=== PATIENT | male | born 1980 | race Caucasian/White ===

== ENCOUNTER 2018-08-02 18:21 | Emergency (ER) | payer BC, OTHER ==
[2018-08-02 18:26] VITALS: TEMP 98.1
[2018-08-02] MEDS ORDERED: KETOROLAC 60 MG/2 ML VIAL IM STA (18:52)
--- NOTE | 2018-08-02 19:08 | XR ---
EXAMINATION TYPE: XR ribs RT w pa chest xray DATE OF EXAM: 08/02/2018 CLINICAL HISTORY: Chest and right-sided rib pain for 4 days. TECHNIQUE: Single frontal view of the chest is obtained. A frontal and oblique images of the right-si ded ribs are acquired. COMPARISON: Chest x-ray August 19, 2015. FINDINGS: There is chronic parenchymal change without suspicious focal air space opacity, pleural ef fusion, or pneumothorax seen. The cardiac silhouette size is within normal limits. The osseous str uctures are intact. Dedicated images of right-sided ribs show no acute displaced fracture. Overlying soft tissue is unrem arkable. IMPRESSION: 1. No acute cardiopulmonary process. 2. No acute displaced right-sided rib fractures are seen.
--- NOTE | 2018-08-02 19:45 | ED ---
General Adult HPI - General Chief complaint: Recheck/Abnormal Lab/Rx Stated complaint: rt sided abd pain Time Seen by Provider: 08/02/18 18:34 Source: patient, RN notes reviewed, old records reviewed Mode of arrival: ambulatory Limitations: no limitations - History of Present Illness Initial comments: 37-year-old male patient passed no history of spherocytosis status post splenectomy presents to ED with right rib pain. Patient force approximate 4 days ago he was bending over to place something in the trash when he felt pain in his right anterior axillary line at approximately eighth rib. Patient reports that he has had this pain for approximate 4 days. Patient states the pain is increased with palpation as well as reproducible by range of motion. Patient has a shortness of breath chest pain nausea vomiting or diarrhea. Patient has any fevers at home. Patient denies any other complaints today. Systemic: Pt denies fatigue, myalgia, fever/chills, rash. Pt denies weakness, night sweats, weight loss. Neuro: Pt denies headache, visual disturbances, syncope or pre-syncope. HEENT: Pt denies ocular discharge or irritation, otalgia, rhinorrhea, pharyngitis or notable lymphadenopathy. Cardiopulmonary: Pt denies chest pain, SOB, heart palpitations, dyspnea on exertion. Abdominal/GI: Pt denies abdominal pain, n/v/d. : Pt denies dysuria, burning w/ urination, frequency/urgency. Denies new onset urinary or bowel incontinence. MSK: Pt denies myalgia, loss of strength or function in extremities. Neuro: Pt denies new onset weakness, paresthesias. - Related Data Home Medications Medication Instructions Recorded Confirmed metFORMIN HCL [metFORMIN HCL ER] 1,000 mg PO AC-SUPPER 12/17/15 12/17/15 Previous Rx's Medication Instructions Recorded LORazepam [Ativan] 1 mg PO TID PRN #8 tab 12/18/15 Meclizine [Antivert] 25 mg PO TID PRN #12 tab 12/18/15 Ibuprofen [Motrin] 600 mg PO Q6HR PRN #40 day 08/02/18 Allergies Allergy/AdvReac Type Severity Reaction Status Date / Time No Known Allergies Allergy Verified 08/02/18 18:26 Review of Systems ROS Statement: Those systems with pertinent positive or pertinent negative responses have been documented in the HPI. ROS Other: All systems not noted in ROS Statement are negative. Past Medical History Past Medical History: Hyperlipidemia Additional Past Medical History / Comment(s): spherocytosis, vertigo History of Any Multi-Drug Resistant Organisms: None Reported Additional Past Surgical History / Comment(s): spleenectomy Past Psychological History: No Psychological Hx Reported Smoking Status: Never smoker Past Alcohol Use History: None Reported Past Drug Use History: None Reported General Exam - General Exam Comments Initial Comments: Constitutional: NAD, AOX3, Pt has pleasant affect. HEENT: NC/AT, trachea midline, neck supple, no lymphadenopathy. Posterior pharynx non erythematous, without exudates. External ears appear normal, without discharge. Mucous membranes moist. Eyes PERRLA, EOM intact. There is no scleral icterus. No pallor noted. Cardiopulmonary: RRR, no murmurs, rubs or gallops, no JVD noted. Lungs CTAB in anterior and posterior orozco. No peripheral edema. Abdominal exam: Abdomen soft and non-distended. Abdomen non-tender to palpation in all 4 quadrants. Bowel sounds active in LLQ. No hepatosplenomegaly. No ecchymosis Neuro: CN II-XII grossly intact. No nuchal rigidity. MSK: Mild tenderness to palpation in anterior axillary line of right eighth rib. No ecchymoses. Tenderness reproducible by range of motion. No posterior calf tenderness bilaterally, homans sign negative bilaterally. Posterior tibialis and radial pulse +2 bilaterally. Sensation intact in upper and lower extremities. Full active ROM in upper and lower extremities, 5/5 stregnth. Limitations: no limitations Course Vital Signs 08/02/18 18:24 Temperature 98.1 F Pulse Rate 90 Respiratory 18 Rate Blood Pressure 128/67 O2 Sat by Pulse 98 Oximetry Medical Decision Making - Medical Decision Making 37-year-old male patient passed no history of spherocytosis status post splenectomy presents to ED with right rib pain. Patient force approximate 4 days ago he was bending over to place something in the trash when he felt pain in his right anterior axillary line at approximately eighth rib. Patient reports that he has had this pain for approximate 4 days. Patient states the pain is increased with palpation as well as reproducible by range of motion. Patient has a shortness of breath chest pain nausea vomiting or diarrhea. Patient has any fevers at home. Patient denies any other complaints today. Patient was in stable, afebrile. Physical exam displayed: Mild tenderness to palpation in anterior axillary line of right eighth rib. No ecchymoses. Tenderness reproducible by range of motion. Plain film of right ribs as well as PA chest x-ray displayed no acute cardiopulmonary process, no acute distress. Side fractures. Patient provided administration Toradol. Patient discharged with ibuprofen. Patient will follow up with primary care provider in 1-2 days. Patient given strict return precautions, pt to return to ER if conditon worsens in anyway. Case discussed with Dr. Morocho. Disposition Clinical Impression: Muscle strain Disposition: HOME SELF-CARE Condition: Stable Instructions (If sedation given, give patient instructions): Muscle Strain (ED) Additional Instructions: Patient to adhere to previously discussed treatment plan and will take medication(s) as directed. Patient to follow up with PCP in 1-2 days. Patient to return to ED if symptoms do not improve. Please take scheduled ibuprofen for 4 days. Please return immediately if any new symptoms develop, condition worsens or if fever. Please follow-up with primary care provider in 1-2 days. Prescriptions: Ibuprofen [Motrin] 600 mg PO Q6HR PRN #40 day PRN Reason: Pain Is patient prescribed a controlled substance at d/c from ED?: No Referrals: Low Rosa MD [Primary Care Provider] - 1-2 days
[2018-08-02 20:07] VITALS: BP 131/83; PULSE 91; RESP 17
== END 2018-08-02 20:05 | disposition home or self-care (01) ==
LOC: EC 18:21
DX: S29.011A Strain of muscle and tendon of front wall of thorax, initial encounter (principal); Z86.2 Personal history of diseases of the blood and blood-forming organs and certain disorders involving the immune mechanism; Z90.49 Acquired absence of other specified parts of digestive tract; Z79.84 Long term (current) use of oral hypoglycemic drugs; X50.9XXA Other and unspecified overexertion or strenuous movements or postures, initial encounter; Y92.009 Unspecified place in unspecified non-institutional (private) residence as the place of occurrence of the external cause
CPT/HCPCS: 71101; 99283; 96372; J1885

== ENCOUNTER 2018-12-30 17:32 | Observation (INO) | payer OTHER ==
[2018-12-30] MEDS ORDERED: ACETAMINOPHEN TAB 500 MG TAB PO STA (17:56)
--- NOTE | 2018-12-30 18:01 | ED ---
General Adult HPI - General Chief complaint: Nausea/Vomiting/Diarrhea Stated complaint: Sick Time Seen by Provider: 12/30/18 17:35 Source: patient, RN notes reviewed Mode of arrival: ambulatory Limitations: no limitations - History of Present Illness Initial comments: This is a 38-year-old male who has a past medical history significant for spherocytosis and has had a splenectomy. Patient comes in today complaining that for a week he's had nausea vomiting and diarrhea as well as a fever. Patient states he breaks out into a sweat and then gets the chills thereafter. Patient states he has he has had an occasional sore throat. Patient denies any cough but states he does cough up some junk in the mornings but that is something in his been long-standing. Patient denies any shortness of breath or chest pain. Patient has any palpitations. Patient denies any dysuria hematuria urinary frequency. Patient states he vomits at least a couple times a day and has diarrhea at least once a day. Patient denies any significant abdominal pain. Patient denies any sores lesions or areas of redness. Patient states he did have a large lymph node on the posterior aspect of the left side of his neck but it seems to be getting considerably smaller. Patient states initially was quite tender. Patient denies headache patient denies any numbness weakness. - Related Data Home Medications Medication Instructions Recorded Confirmed Aspirin/Sod Bicarb/Citric Acid 1 tab PO Q6H PRN 12/30/18 12/30/18 [[place] Original Tab Eff] diphenhydrAMINE HCL [Benadryl] 25 mg PO HS PRN 12/30/18 12/30/18 Allergies Allergy/AdvReac Type Severity Reaction Status Date / Time No Known Allergies Allergy Verified 12/30/18 18:15 Review of Systems ROS Statement: Those systems with pertinent positive or pertinent negative responses have been documented in the HPI. ROS Other: All systems not noted in ROS Statement are negative. Past Medical History Past Medical History: Hyperlipidemia Additional Past Medical History / Comment(s): spherocytosis, vertigo History of Any Multi-Drug Resistant Organisms: None Reported Additional Past Surgical History / Comment(s): spleenectomy Past Psychological History: No Psychological Hx Reported Smoking Status: Never smoker Past Alcohol Use History: None Reported Past Drug Use History: None Reported General Exam - General Exam Comments Initial Comments: GENERAL: Patient is well-developed and well-nourished. Patient is nontoxic and well- hydrated and is in mild distress. ENT: Neck is soft and supple. Patient had large posterior left cervical lymph node Oropharynx is clear. Moist mucous membranes. Neck has full range of motion without eliciting any pain. There is no thyroid enlargement and no masses were felt. EYES: The sclera were anicteric and conjunctiva were pink and moist. Extraocular movements were intact and pupils were equal round and reactive to light. Eyelids were unremarkable. PULMONARY: Unlabored respirations. Good breath sounds bilaterally. No audible rales rho nchi or wheezing was noted. CARDIOVASCULAR: There is a regular rate and rhythm without any murmurs gallops or rubs. ABDOMEN: Soft and nontender with normal bowel sounds. No palpable organomegaly was noted. There is no palpable pulsatile mass. Patient is morbidly obese SKIN: Skin is clear with no lesions or rashes and otherwise unremarkable. NEUROLOGIC: Patient is alert and oriented x3. Cranial nerves II through XII are grossly intact. Motor and sensory are also intact. Normal speech, volume and content. Symmetrical smile. MUSCULOSKELETAL: Normal extremities with adequate strength and full range of motion. LYMPHATICS: No significant lymphadenopathy is noted PSYCHIATRIC: Normal psychiatric evaluation. Limitations: no limitations Course Vital Signs 12/30/18 12/30/18 12/30/18 17:34 18:11 19:24 Temperature 97.6 F 99.7 F H 100.0 F H Pulse Rate 108 H 89 Respiratory 22 18 Rate Blood Pressure 183/113 128/98 O2 Sat by Pulse 98 98 Oximetry Medical Decision Making - Medical Decision Making EKG shows normal sinus rhythm at 94 bpm AK interval is 150 QRS is 90 QT interval 348 QTC is 435. Patient's EKG shows no ST segment elevation or depression. Patient has a positive heterophile. I spoke with Dr. Dejesus he agreed to admit the patient. - Lab Data Result diagrams: 12/30/18 18:25 12/30/18 18:25 Lab Results 12/30/18 12/30/18 12/30/18 Range/Units 18:17 18:25 18:25 WBC 7.1 (3.8-10.6) k/uL RBC 5.63 (4.30-5.90) m/uL Hgb 16.1 (13.0-17.5) gm/dL Hct 46.0 (39.0-53.0) % MCV 81.6 (80.0-100.0) fL MCH 28.5 (25.0-35.0) pg MCHC 35.0 (31.0-37.0) g/dL RDW 15.3 (11.5-15.5) % Plt Count 517 H (150-450) k/uL Neutrophils % (Manual) 71 % Band Neutrophils % 1 % Lymphocytes % (Manual) 20 % Monocytes % (Manual) 7 % Eosinophils % (Manual) 1 % Neutrophils # (Manual) 5.10 (1.3-7.7) k/uL Lymphocytes # (Manual) 1.42 (1.0-4.8) k/uL Monocytes # (Manual) 0.50 (0-1.0) k/uL Eosinophils # (Manual) 0.07 (0-0.7) k/uL Nucleated RBCs 0 (0-0) /100 WBC Manual Slide Review Performed PT (9.0-12.0) sec INR (<1.2) APTT (22.0-30.0) sec Sodium (137-145) mmol/L Potassium (3.5-5.1) mmol/L Chloride (98-107) mmol/L Carbon Dioxide (22-30) mmol/L Anion Gap mmol/L BUN (9-20) mg/dL Creatinine (0.66-1.25) mg/dL Est GFR (CKD-EPI)AfAm (>60 ml/min/1.73 sqM) Est GFR (CKD-EPI)NonAf (>60 ml/min/1.73 sqM) Glucose (74-99) mg/dL Plasma Lactic Acid Samy (0.7-2.0) mmol/L Calcium (8.4-10.2) mg/dL Total Bilirubin (0.2-1.3) mg/dL AST (17-59) U/L ALT (21-72) U/L Alkaline Phosphatase (38-126) U/L Troponin I (0.000-0.034) ng/mL Total Protein (6.3-8.2) g/dL Albumin (3.5-5.0) g/dL Urine Color Urine Appearance (Clear) Urine pH (5.0-8.0) Ur Specific [place] (1.001-1.035) Urine Protein (Negative) Urine Glucose (UA) (Negative) Urine Ketones (Negative) Urine Blood (Negative) Urine Nitrite (Negative) Urine Bilirubin (Negative) Urine Urobilinogen (<2.0) mg/dL Ur Leukocyte Esterase (Negative) Heterophile Antibody (Negative) Influenza Type A RNA Not Detected (Not Detectd) Influenza Type B (PCR) Not Detected (Not Detectd) Group A Strep Rapid Negative (Negative) 12/30/18 12/30/18 12/30/18 Range/Units 18:25 18:25 18:25 WBC (3.8-10.6) k/uL RBC (4.30-5.90) m/uL Hgb (13.0-17.5) gm/dL Hct (39.0-53.0) % MCV (80.0-100.0) fL MCH (25.0-35.0) pg MCHC (31.0-37.0) g/dL RDW (11.5-15.5) % Plt Count (150-450) k/uL Neutrophils % (Manual) % Band Neutrophils % % Lymphocytes % (Manual) % Monocytes % (Manual) % Eosinophils % (Manual) % Neutrophils # (Manual) (1.3-7.7) k/uL Lymphocytes # (Manual) (1.0-4.8) k/uL Monocytes # (Manual) (0-1.0) k/uL Eosinophils # (Manual) (0-0.7) k/uL Nucleated RBCs (0-0) /100 WBC Manual Slide Review PT 10.1 (9.0-12.0) sec INR 0.9 (<1.2) APTT 23.3 (22.0-30.0) sec Sodium 137 (137-145) mmol/L Potassium 4.6 (3.5-5.1) mmol/L Chloride 100 (98-107) mmol/L Carbon Dioxide 24 (22-30) mmol/L Anion Gap 13 mmol/L BUN 8 L (9-20) mg/dL Creatinine 0.75 (0.66-1.25) mg/dL Est GFR (CKD-EPI)AfAm >90 (>60 ml/min/1.73 sqM) Est GFR (CKD-EPI)NonAf >90 (>60 ml/min/1.73 sqM) Glucose 263 H (74-99) mg/dL Plasma Lactic Acid Samy 3.2 H* (0.7-2.0) mmol/L Calcium 9.2 (8.4-10.2) mg/dL Total Bilirubin 0.6 (0.2-1.3) mg/dL AST 70 H (17-59) U/L ALT 70 (21-72) U/L Alkaline Phosphatase 96 (38-126) U/L Troponin I (0.000-0.034) ng/mL Total Protein 7.6 (6.3-8.2) g/dL Albumin 3.9 (3.5-5.0) g/dL Urine Color Urine Appearance (Clear) Urine pH (5.0-8.0) Ur Specific [place] (1.001-1.035) Urine Protein (Negative) Urine Glucose (UA) (Negative) Urine Ketones (Negative) Urine Blood (Negative) Urine Nitrite (Negative) Urine Bilirubin (Negative) Urine Urobilinogen (<2.0) mg/dL Ur Leukocyte Esterase (Negative) Heterophile Antibody (Negative) Influenza Type A RNA (Not Detectd) Influenza Type B (PCR) (Not Detectd) Group A Strep Rapid (Negative) 12/30/18 12/30/18 12/30/18 Range/Units 18:25 18:25 18:25 WBC (3.8-10.6) k/uL RBC (4.30-5.90) m/uL Hgb (13.0-17.5) gm/dL Hct (39.0-53.0) % MCV (80.0-100.0) fL MCH (25.0-35.0) pg MCHC (31.0-37.0) g/dL RDW (11.5-15.5) % Plt Count (150-450) k/uL Neutrophils % (Manual) % Band Neutrophils % % Lymphocytes % (Manual) % Monocytes % (Manual) % Eosinophils % (Manual) % Neutrophils # (Manual) (1.3-7.7) k/uL Lymphocytes # (Manual) (1.0-4.8) k/uL Monocytes # (Manual) (0-1.0) k/uL Eosinophils # (Manual) (0-0.7) k/uL Nucleated RBCs (0-0) /100 WBC Manual Slide Review PT (9.0-12.0) sec INR (<1.2) APTT (22.0-30.0) sec Sodium (137-145) mmol/L Potassium (3.5-5.1) mmol/L Chloride (98-107) mmol/L Carbon Dioxide (22-30) mmol/L Anion Gap mmol/L BUN (9-20) mg/dL Creatinine (0.66-1.25) mg/dL Est GFR (CKD-EPI)AfAm (>60 ml/min/1.73 sqM) Est GFR (CKD-EPI)NonAf (>60 ml/min/1.73 sqM) Glucose (74-99) mg/dL Plasma Lactic Acid Samy (0.7-2.0) mmol/L Calcium (8.4-10.2) mg/dL Total Bilirubin (0.2-1.3) mg/dL AST (17-59) U/L ALT (21-72) U/L Alkaline Phosphatase (38-126) U/L Troponin I <0.012 (0.000-0.034) ng/mL Total Protein (6.3-8.2) g/dL Albumin (3.5-5.0) g/dL Urine Color Yellow Urine Appearance Clear (Clear) Urine pH 6.0 (5.0-8.0) Ur Specific [place] 1.015 (1.001-1.035) Urine Protein Negative (Negative) Urine Glucose (UA) 4+ H (Negative) Urine Ketones Negative (Negative) Urine Blood Negative (Negative) Urine Nitrite Negative (Negative) Urine Bilirubin Negative (Negative) Urine Urobilinogen <2.0 (<2.0) mg/dL Ur Leukocyte Esterase Negative (Negative) Heterophile Antibody Positive (Negative) Influenza Type A RNA (Not Detectd) Influenza Type B (PCR) (Not Detectd) Group A Strep Rapid (Negative) Disposition Clinical Impression: Gastroenteritis, Mononucleosis Disposition: ADMITTED IP TO THIS HOSP Referrals: Low Rosa MD [Primary Care Provider] - 1-2 days Time of Disposition: 20:39
[2018-12-30] MEDS: SODIUM CHLORIDE 0.9% 500 ML 500 ML IV SCH (18:51)
[2018-12-30 19:04] LABS: HGB 16.1 gm/dL (13.0-17.5); MCH 28.5 pg (25.0-35.0); MCV 81.6 fL (80.0-100.0); Mean Platelet Volume 7.8; Platelet Count 517 k/uL (150-450); RBC 5.63 m/uL (4.30-5.90); RDW 15.3 % (11.5-15.5); WBC 7.1 k/uL (3.8-10.6)
[2018-12-30 19:08] LABS: INR 0.9 (<1.2); Partial Thromboplastin Time 23.3 sec (22.0-30.0); Prothrombin Time 10.1 sec (9.0-12.0)
--- NOTE | 2018-12-30 19:08 | XR ---
EXAMINATION TYPE: XR chest 2V DATE OF EXAM: 12/30/2018 COMPARISON: 08/02/2018 HISTORY: Nausea and vomiting TECHNIQUE: Frontal and lateral views of the chest are obtained. FINDINGS: Heart and mediastinum are normal. Lungs are clear. Diaphragm is normal. Bony thorax is nor mal. There is no pleural effusion. IMPRESSION: Normal chest. No change.
[2018-12-30 19:09] LABS: Appearance,Urine Clear (Clear); Bilirubin,Urine Negative (Negative); Blood,Urine Negative (Negative); Color,Urine Yellow; Glucose,Urine (UA) 4+ (Negative); Ketones,Urine Negative (Negative); Leukocyte Esterase,Urine Negative (Negative); Nitrite,Urine Negative (Negative); Protein,Urine Negative (Negative); Specific Gravity,Urine 1.015 (1.001-1.035); Urobilinogen,Urine <2.0 mg/dL (<2.0)
[2018-12-30 19:11] LABS: ALT 70 U/L (21-72); AST 70 U/L (17-59); African American GFR (CKD) >90 (>60 ml/min/1.73 sqM); Albumin 3.9 g/dL (3.5-5.0); Alkaline Phosphatase 96 U/L (38-126); Anion Gap 13 mmol/L; Blood Urea Nitrogen 8 mg/dL (9-20); Calcium 9.2 mg/dL (8.4-10.2); Carbon Dioxide 24 mmol/L (22-30); Chloride 100 mmol/L (98-107); Glucose 263 mg/dL (74-99); Potassium 4.6 mmol/L (3.5-5.1); Sodium 137 mmol/L (137-145); Total Bilirubin 0.6 mg/dL (0.2-1.3); Total Protein 7.6 g/dL (6.3-8.2)
[2018-12-30 20:01] LABS: Band Neutrophils % 1 %; Eosinophils # (M) 0.07 k/uL (0-0.7); Lymphocytes # (M) 1.42 k/uL (1.0-4.8); Neutrophils % (M) 71 %; Nucleated Red Blood Cells 0 /100 WBC (0-0); Total Cells Counted 100
[2018-12-30] MEDS ORDERED: SODIUM CHLORIDE 0.9% 1,000 ML IV ONE (20:39)
[2018-12-30] MEDS ORDERED: ONDANSETRON 4 MG/2 ML VIAL IVP PRN (20:40)
[2018-12-30 23:03] VITALS: BMI 43.5
[2018-12-30 23:31] LABS: Glucose,Whole Blood 149 mg/dL (75-99)
[2018-12-30] MEDS ORDERED: ACETAMINOPHEN TAB 325 MG TAB PO PRN (23:57)
--- NOTE | 2018-12-31 00:12 | P.HPIM ---
History of Present Illness H&P Date: 12/30/18 Chief Complaint: fever 38-year-old malewith history of spherocytosis status post splenectomy Patient presented the hospital with 1 week history of fevers and swollen neck gl and he grew concerned as he has history of splenectomy. Patient also reports off and on diarrhea and vomiting over the past week , and reports frequent chills and fevers.however he denies anychest pain coughing or trouble breathing. Denies any abdominal pain. Denies any sick contacts. Denies any headache or neck stiffness. Denies any focal neurologic deficits. Patient does report that he was camping up [place] however he doesn't recall any unsanitary food or drink. And he was recently in a trip down in [place]. However he denies any rashes and doesn't recall any tick bites. Patient reports that the swollen gland on the side of his neck is getting better however still there and concerning him. Patient does report occasional coughing in the morning when he wakes up however this is long-standing and productive of coughing. However denies any hemoptysis weight loss or any GI bleeding. patient also reports poor by mouth intake over the past 4-5 days due to repeated vomiting, denies any hemoptysis( hematemesis or coffee-ground vomiting, denies any melena or hematochezia in the ED patient labs were positive for lactic acidosis, positive heterophile antibodies,negative flu test and negative rapid strep patient had a high fever in the ED with his history of splenectomy decision was made to observe the patient overnight and check cultures he received 1 dose of Rocephin. However upon reviewing his labs it's thought that patient probably had infectious mononucleosis which could explain his symptoms with some viral GI upset. Patient will be monitored with supportive care overnight Review of Systems Pertinent positives as noted in HPI. All other systems were reviewed and are negative Past Medical History Past Medical History: Hyperlipidemia Additional Past Medical History / Comment(s): spherocytosis, vertigo History of Any Multi-Drug Resistant Organisms: None Reported Additional Past Surgical History / Comment(s): spleenectomy 2010 Past Anesthesia/Blood Transfusion Reactions: No Reported Reaction Past Psychological History: No Psychological Hx Reported Smoking Status: Never smoker Past Alcohol Use History: None Reported Past Drug Use History: None Reported - Past Family History Mother Family Medical History: Cancer Additional Family Medical History / Comment(s): at age 55 of lung ca with mets to bone. Father Family Medical History: No Reported History Additional Family Medical History / Comment(s): at age 24. Brother(s) Family Medical History: No Reported History Medications and Allergies Home Medications Medication Instructions Recorded Confirmed Type Aspirin/Sod Bicarb/Citric Acid 1 tab PO Q6H PRN 12/30/18 12/30/18 History [[place] Original Tab Eff] Cetirizine HCl/Pseudoephedrine 1 each PO 12/30/18 History [Zyrtec-D Tablet] diphenhydrAMINE HCL [Benadryl] 25 mg PO DAILY PRN 12/30/18 12/30/18 History Allergies Allergy/AdvReac Type Severity Reaction Status Date / Time No Known Allergies Allergy Verified 12/30/18 18:15 Physical Exam Vitals: Vital Signs Temp Pulse Resp BP Pulse Ox 12/30/18 21:50 98.6 F 12/30/18 21:00 81 18 139/90 96 12/30/18 20:00 80 16 134/90 12/30/18 19:24 100.0 F H 87 17 120/96 97 12/30/18 18:11 99.7 F H 12/30/18 17:34 97.6 F 108 H 22 183/113 98 Intake and Output 12/30/18 12/30/18 12/31/18 14:59 22:59 06:59 Other: Weight 149.685 kg Constitutional: No acute distress, conversant, pleasant, obese Eyes: Anicteric sclerae, moist conjunctiva, no lid-lag Pupils equal round reactive to light ENMT: NC/AT Oropharynx clear, no erythema, orexudates Neck: Supple, FROM, no masses, or JVD No carotid bruits No thyromegaly Lungs: Clear to auscultation Clear to percussion Normal respiratory effort, no accessory muscle use Cardiovascular: Heart regular in rate and rhythm, No murmurs, gallops, or rubs No peripheral edema Abdominal: Soft Nontender, no guarding, rebound or rigidity Abdomen moving with respiration Normoactive bowel sounds No hepatomegaly, No splenomegaly No palpable mass No abdominal wall hernia noted Skin: Normal temperature, tone, texture, turgor No induration No subcutaneous nodules No rash, lesions No ulcers Extremities: No digital cyanosis No clubbing Pedal pulses intact and symmetrical Radial pulses intact and symmetrical No calf tenderness Psychiatric: Alert and oriented to person, place and time Appropriate affect fair judgment Neuro Muscles Strength 5/5 in all 4 extremities Sensation to light touch grossly present throughout Cranial nerves II-XII grossly intact No focal sensory deficits Lymphatics: palpable left cervical lymph node 3 x 3 cm not tender to palpation mobile and rubbery, no palpable supraclavicular , or inguinal lymph nodes Results CBC & Chem 7: 12/30/18 18:25 12/30/18 18:25 Labs: Abnormal Lab Results - Last 24 Hours (Table) 12/30/18 12/30/18 12/30/18 Range/Units 18:25 18:25 18:25 Plt Count 517 H (150-450) k/uL BUN 8 L (9-20) mg/dL Glucose 263 H (74-99) mg/dL POC Glucose (mg/dL) (75-99) mg/dL Plasma Lactic Acid Samy 3.2 H* (0.7-2.0) mmol/L AST 70 H (17-59) U/L Urine Glucose (UA) (Negative) 12/30/18 12/30/18 Range/Units 18:25 23:29 Plt Count (150-450) k/uL BUN (9-20) mg/dL Glucose (74-99) mg/dL POC Glucose (mg/dL) 149 H (75-99) mg/dL Plasma Lactic Acid Samy (0.7-2.0) mmol/L AST (17-59) U/L Urine Glucose (UA) 4+ H (Negative) Thrombosis Risk Factor Assmnt - Choose All That Apply Any of the Below Risk Factors Present?: Yes Each Factor Represents 1 point: Obesity (BMI >25) Other Risk Factors: No Other congenital or acquired thrombophilia - If yes, enter type in comment: No Thrombosis Risk Factor Assessment Total Risk Factor Score: 1 Thrombosis Risk Factor Assessment Level: Low Risk Assessment and Plan Assessment: 38-year-old male with history of spherocytosis status post splenectomy admitted under observation with anticipated length of stay less than 2 midnights due to fevers and history of splenectomy, along with lactic acidosis. Labs showed positive for heterophile antibodies which is suspicious for infectious mononucleosis with viral GI upset. Patient will be monitored overnight with aggressive hydration will follow-up lactic acid and cultures patient received 1 dose of antibiotic in the ED I will continue to monitor the patient off antibiotics for now. Plan: infectious mononucleosis, with enlarged cervical lymph node Viral gastroenteritis Spherocytosis status post the pleurectomy Fevers and lactic acidosis rule out infectious process with encapsulated bacteria spherocytosis status post splenectomy Dehydration Supportive care IV fluid hydration Symptomatic control of nausea and vomiting patient received 1 dose of antibiotic in the ED we'll continue to monitor off antibiotics Follow-up cultures Follow-up strep throat culture Patient needs update on pneumonia vaccine due to history of splenectomy DVT prophylaxis heparin subcu 3 times a day patient counseled that the patient has recurrent enlarged lymph nodes or the current lymph node doesn't disappear within 1 week to follow up with his PCP as consideration should be made for biopsy of the lymph node if it persists to rule out any lymphoma CODE STATUS:full code Discussed with: Patient, ER, RN Anticipated length of stay lessthan [address]: home A total of extremity minutes was spent on the care of this complex patient more than 50% of the time was spent in counseling and care coordination.
[2018-12-31] MEDS: HEPARIN SODIUM,PORCINE 5,000 UNIT/ML 1 ML VIAL SQ SCH ×2 (00:28→07:52)
[2018-12-31 02:33] VITALS: RESP 20
[2018-12-31 05:36] VITALS: BP 135/74; PULSE 93; TEMP 99
[2018-12-31 07:34] LABS: Glucose,Whole Blood 189 mg/dL (75-99)
--- NOTE | 2018-12-31 10:32 | P.DS ---
Providers Date of admission: 12/30/18 20:39 Expected date of discharge: 12/31/18 Attending physician: Brenda Dejesus MD Primary care physician: Low Rosa - Discharge Diagnosis(es) (1) Gastroenteritis Current Visit: Yes Status: Acute (2) Mononucleosis Current Visit: Yes Status: Acute (3) Dehydration Current Visit: Yes Status: Acute Hospital Course: The patient is a 38-year-old male with a history of spherocytosis status post splenectomy that was admitted with infectious mononucleosis and gastroenteritis after presenting with diarrhea nausea vomiting and sedation fevers chills or night sweats. On admission the patient is noted to have elevated lactate level positive heterophile antibodies negative flu and negative rapid strep and was given a dose of empiric IV antibiotics with Rocephin. Urinalysis was positive for 4+ glucose but was otherwise normal. The patient was started on IV fluids for dehydration. Patient was afebrile throughout hospitalization a T-max of 100. He was subsequently discharged home in stable condition and instructed to follow-up with his PCP. This discharge process took approximately 30 minutes Focused exam GI: Soft nontender nondistended normal active bowel sounds all 4 quadrants Patient Condition at Discharge: Good Plan - Discharge Summary New Discharge Prescriptions: Continue diphenhydrAMINE HCL [Benadryl] 25 mg PO DAILY PRN PRN Reason: Allergy Symptoms Aspirin/Sod Bicarb/Citric Acid [[place] Original Tab Eff] 1 tab PO Q6H PRN PRN Reason: Flu Symptoms Cetirizine HCl/Pseudoephedrine [Zyrtec-D Tablet] 1 each PO Discharge Medication List Aspirin/Sod Bicarb/Citric Acid [[place] Original Tab Eff] 1 tab PO Q6H PRN 12/30/18 [History] Cetirizine HCl/Pseudoephedrine [Zyrtec-D Tablet] 1 each PO 12/30/18 [History] diphenhydrAMINE HCL [Benadryl] 25 mg PO DAILY PRN 12/30/18 [History] Follow up Appointment(s)/Referral(s): Low Rosa MD [Primary Care Provider] - 1-2 days (please call office to set up appt.) Patient Instructions/Handouts: Mononucleosis (ED) Discharge Disposition: HOME SELF-CARE
== END 2018-12-31 10:54 | disposition home or self-care (01) ==
LOC: EC 17:32 → 4MS4W 20:39
PROVIDERS: ADMIT Internal Medicine; ATTEND Internal Medicine
DX: B27.90 Infectious mononucleosis, unspecified without complication (principal); E86.0 Dehydration; A08.4 Viral intestinal infection, unspecified; E87.2 Acidosis; E78.5 Hyperlipidemia, unspecified; D58.0 Hereditary spherocytosis; R42 Dizziness and giddiness; E66.01 Morbid (severe) obesity due to excess calories; Z68.41 Body mass index [BMI] 40.0-44.9, adult; Z79.899 Other long term (current) drug therapy; Z90.81 Acquired absence of spleen; Z80.1 Family history of malignant neoplasm of trachea, bronchus and lung
CPT/HCPCS: 96361 ×3; 96372; 96365; 99285; 36415; 93005; 80053; 83605; 84484; 85025; 85610; 85730; 86308; 81003; 87040; 87081; 87430; 87502; 71046; G0378 ×2; J1644; J0696